=== PATIENT | male | born 1975 | race African-American/Black ===

== ENCOUNTER 2021-03-14 21:47 | Emergency (ER) | payer SELFPAY ==
[2021-03-14 22:01] VITALS: BP 165/89; PULSE 90; RESP 18; TEMP 36.7; O2SAT 98; BMI 26.3
--- NOTE | 2021-03-14 22:30 | W.ED.GENADLT ---
HPI - General Adult General: Chief complaint: General Medical Stated complaint: Out of Blood Pressure Time Seen by Provider: 03/14/21 22:18 History of Present Illness: HPI narrative: Patient is a 46-year-old male comes to the ED in need of medication refill. Patient currently takes amlodipine 10 mg daily for blood pressure. He ran out of his amlodipine yesterday. 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 He is unable to get back to his primary care physician doctor's office in [place] so he came here to the ED to see about getting prescription refill. Denies any other complaints such as chest pain, shortness of breath, fever, chills, nausea/vomiting. Associated symptoms: Deny chest pain, dyspnea, headache(s), nausea, rash, palpitations or vomiting Review of Systems Narrative: Denies any other complaints. Const: Denies: fever(s), chills or fatigue Eyes: Denies: change in vision or eye discomfort ENMT: Denies: throat pain, odynophagia, nasal discharge or nasal congestion Card: Denies: chest pain, palpitations, edema, swelling of feet/ankles, dyspnea on exertion or orthopnea Resp: Denies: dyspnea, productive cough or non-productive cough GI: Denies: abdominal pain, nausea, vomiting, diarrhea, constipation or hematochezia : Denies: flank pain, difficulty urinating, dysuria or hematuria Musc: Denies: neck pain, back pain or extremity swelling Skin/Breast: Denies: rash or new lesions Neuro: Denies: headache(s), numbness in extremities or weakness in extremities [facility] ED PFSH: Medical History Hypertension No pertinent family history Surgical History No pertinent past surgical history Physical Exam Const: COMMON NORMALS: no acute distress, patient oriented x3 and alert GENERAL APPEARANCE: cooperative and comfortable HENMT: COMMON NORMALS: normocephalic HEAD & SCALP: normocephalic MOUTH: Normal oral and palatal mucosa present THROAT: posterior oropharynx normal and uvula midline Neck/C-Spine: COMMON NORMALS: supple GENERAL: Yes normal visual inspection Resp: COMMON NORMALS: normal respiratory effort, No retractions, No use of accessory muscles and clear to auscultation bilaterally AUSCULTATION: clear to auscultation bilaterally Cardio: COMMON NORMALS: regular rate, regular rhythm, S1 normal heart sound present, S2 normal heart sound present, No gallops present (Cardio), No clicks present (Cardio), No murmurs present (Cardio) and Peripheral pulses 2+ throughout RATE: regular rate RHYTHM: regular rhythm HEART SOUNDS: S1 normal heart sound present and S2 normal heart sound present PERIPHERAL PULSES: Peripheral pulses 2+ throughout GI: COMMON NORMALS: Normal to inspection, nondistended, normoactive bowel sounds present, Soft to palpation, non-tender and no masses PALPATION: Yes Soft to palpation : COMMON NORMALS: Yes no CVA tenderness BLADDER/KIDNEY EXAM: Yes no CVA tenderness Back/Pelvis: COMMON NORMALS: no CVA tenderness Extremity: COMMON NORMALS: normal to inspection Neuro: COMMON NORMALS: patient oriented x3 and moves all extremities SENSORIUM/ORIENTATION: Yes alert Skin: GENERAL SKIN EXAM: dry skin Course Vital Signs: Vital signs: Vital Signs Temperature 98.1 F 03/14/21 22:40 Pulse Rate 68 03/14/21 22:40 Respiratory Rate 18 03/14/21 22:40 Blood Pressure 143/88 03/14/21 22:40 Pulse Oximetry 99 03/14/21 22:40 MDM - General Adult MDM Narrative: Medical decision making narrative: Patient is a 46-year-old male who comes to the ED in need of medication refill. Patient takes amlodipine 10 mg once daily for his hypertension. He has been out of his blood pressure medication now for over 24 hours and needs a refill. He denies any other complaints such as chest pain, shortness of breath. Blood pressure was 165/89 and the rest of vitals were stable. Patient was given a dose of amlodipine while here in the ED and then discharged home with a prescription for amlodipine 10 mg p.o. daily. Patient told to follow-up with PCP in the next 7 to 10 days for reevaluation. Return to ED precautions given. Patient understood and agreed with plan. Discharge Plan Discharge Patient Disposition: Home Clinical Impression: Encounter for medication refill Condition: Stable Prescriptions: New amlodipine 10 mg tablet 10 mg PO DAILY Qty: 30 RF: 0 Discharge Orders: Discharge ED (Routine); Ordered 03/14/21 Ordered By: Berhane Olsen Discharge Diet: Regular Discharge Activity: Resume usual activity Patient Instructions: Hypertension (ED) Activity Restrictions/Additional Instructions: Follow-up with medical provider as directed in the next 2 weeks for reevaluation. Take medications as prescribed. Return to the ER or your medical provider if condition worsens. Please read and understand discharge instructions. Thank you for choosing [facility] for your healthcare needs today. Please realize this is an emergency room and that we are providing you with a medical screening exam and this may not be complete and all inclusive of all the testing and or work up that you may need to determine your ailment or severity of your illness. It is very important that you follow up as instructed or that you return to the Emergency Department should you have concerns or if your condition changes or worsens in any way. Coding Level of Care Code ED Pickle Cutter for Юлия Brown Exam Comprehensive
[2021-03-14 22:38] VITALS: BP 143/88; PULSE 69; RESP 18; TEMP 36.7; O2SAT 98
[2021-03-14] MEDS: amlodipine 10 mg Tablet PO (22:39)
[2021-03-14 22:40] VITALS: BP 143/88; PULSE 68; RESP 18; TEMP 36.7; O2SAT 99
== END 2021-03-14 22:41 | disposition home or self-care (01) ==
PROVIDERS: Emergency Provider Physician Assistant
DX: Z76.0 Encounter for issue of repeat prescription (principal); I10 Essential (primary) hypertension
CPT/HCPCS: 99283